=== PATIENT | female | born 1975 | race Caucasian/White ===

== ENCOUNTER 2020-11-24 10:29 | Emergency (ER) | payer BC, SELFPAY ==
[2020-11-24 10:44] VITALS: BP 139/91; PULSE 68; RESP 18; TEMP 36.4; O2SAT 100
[2020-11-24 12:11] VITALS: BP 136/95; PULSE 72; RESP 20; O2SAT 97
--- NOTE | 2020-11-24 12:11 | PC.NURSE ---
Pt resting on cart with no complaints or concerns voiced; updated on poc. No active epistaxis noted at this time. at bedside. Cart in its lowest position with call button and personal items within reach. Advised to press call button for assistance.
--- NOTE | 2020-11-24 12:15 | ED.GENADULT ---
HPI - General Adult General Chief complaint: Epistaxis <Jordan Doshi PA-C - Last Filed: 11/24/20 12:19> Stated complaint: epitaxis <Jordan Doshi PA-C - Last Filed: 11/24/20 12:19> Time Seen by Provider: 11/24/20 10:57 <Jordan Doshi PA-C - Last Filed: 11/24/20 12:19> Source: patient <Jordan Doshi PA-C - Last Filed: 11/24/20 12:19> Mode of arrival: ambulatory <Jordan Doshi PA-C - Last Filed: 11/24/20 12:19> Limitations: no limitations <Jordan Doshi PA-C - Last Filed: 11/24/20 12:19> History of Present Illness HPI narrative: Patient is a 45-year-old female who presents to emergency department with intermittent epistaxis from the right nare had some a few days ago that resolved quickly again today she had it lasted longer patient notes that she has had some seasonal allergies has been using Flonase denies any other symptoms or complaints specifically no anticoagulant use. <Jordan Doshi PA-C - Last Filed: 11/24/20 12:19> Related Data Home medications: Home Medications Medication Instructions Recorded Confirmed levothyroxine 11/24/20 losartan 11/24/20 zolpidem 11/24/20 <Jordan Doshi PA-C - Last Filed: 11/24/20 12:19> Allergies/adverse reactions: Allergies Allergy/AdvReac Type Severity Reaction Status Date / Time Penicillins Allergy Severe RASH Verified 11/24/20 10:46 <Jordan Doshi PA-C - Last Filed: 11/24/20 12:19> Review of Systems Review of Systems: All systems reviewed & are unremarkable except as noted in HPI and below <Jordan Doshi PA-C - Last Filed: 11/24/20 12:19> PMFSH Social History Social History: Social History Gender identity (if verbalized by the patient): Female <Jordan Doshi PA-C - Last Filed: 11/24/20 12:19> Exam Narrative: Exam Narrative: GENERAL: Well-appearing, well-nourished, and in no acute distress. HEAD: Normocephalic, atraumatic. EYES: PERRLA and EOMI. ENT: Nares clear, mild rhinorrhea no epistaxis no bleeding lesions nare was probed and septum with Q-tip unable to start bleeding had the patient blow her nose multiple times no bleeding. Afrin was sprayed into both naris NECK: Supple. No adenopathy or masses. No carotid bruits or JVD CHEST: Clear to auscultation. No respiratory distress. No wheezes rales or rhonchi HEART: Regular rate and rhythm. No murmur heard. EXTREMITIES: Normal range of motion. No edema. SKIN: Warm, dry, no rash. NEURO: No focal deficits. Alert and oriented x3. PSYCH: Normal mood and affect. <MIRELLA Laura Last Filed: 11/24/20 12:19> Course Course Emergency Course: Patient in the room no distress patient was advised to go home continue the Afrin if she starts to have bleeding apply pressure avoided placing Rhino Rocket at this time given that there was no bleeding patient will follow with ENT and was given reasons to return and if she returns we will place Rhino Rocket if necessary <MIRELLA Laura Last Filed: 11/24/20 12:19> Vital Signs Vital signs: Vital Signs Temperature 97.5 F L 11/24/20 10:44 Pulse Rate 68 11/24/20 10:44 Respiratory Rate 18 11/24/20 10:44 Blood Pressure 139/91 H 11/24/20 10:44 Pulse Oximetry 100 11/24/20 10:44 Temperature 97.5 F L 11/24/20 10:44 Pulse Rate 72 11/24/20 12:11 Respiratory Rate 20 11/24/20 12:11 Blood Pressure 136/95 H 11/24/20 12:11 Pulse Oximetry 97 11/24/20 12:11 <MIRELLA Laura Filed: 11/24/20 12:19> Vital Signs Temperature 97.5 F L 11/24/20 10:44 Pulse Rate 68 11/24/20 10:44 Respiratory Rate 18 11/24/20 10:44 Blood Pressure 139/91 H 11/24/20 10:44 Pulse Oximetry 100 11/24/20 10:44 Temperature 97.5 F L 11/24/20 10:44 Pulse Rate 72 11/24/20 12:11 Respiratory Rate 20 11/24/20 12:11 Blood Pressure 136/95 H 11/24/20 12:11
== END 2020-11-24 12:36 | disposition home or self-care (01) ==
PROVIDERS: Emergency Provider General Practice; PCP Registered Nurse
DX: R04.0 Epistaxis (principal)
CPT/HCPCS: 99282; A9270

== ENCOUNTER 2021-08-21 15:17 | Outpatient (CLI) | payer OTHER, SELFPAY ==
--- NOTE | ~2021-08-21 | MM_ITS ---
EXAMINATION: MM screening prasanth BI w rosario HISTORY: Screening TECHNIQUE: Craniocaudal and mediolateral oblique 3-D tomosynthesis images were obtained and synthetic 2-D images were generated. CAD analysis was submitted and interpreted. COMPARISON: 10/02/2019 BREAST PARENCHYMAL COMPOSITION: There are scattered areas of fibroglandular density. FINDINGS: There is no evidence of suspicious mass, calcification, or architectural distortion to sugg est malignancy in either breast. There has been no suspicious interval change. IMPRESSION: 1. No mammographic evidence of malignancy. 2. Recommend routine screening mammography in one year. BI-RADS Category 1: Negative Reviewed, dictated and finalized at location A. ING SERVICE ADMINISTRATOR
== END 2021-08-21 15:18 | disposition home or self-care (01) ==
LOC: ANHIMG 15:20
PROVIDERS: PCP Registered Nurse; Visit Provider Registered Nurse
DX: Z12.31 Encounter for screening mammogram for malignant neoplasm of breast (principal)
CPT/HCPCS: 77063; 77067

== ENCOUNTER 2022-11-13 16:39 | Outpatient (CLI) | payer OTHER, SELFPAY ==
--- NOTE | ~2022-11-13 | MM_ITS ---
EXAMINATION: MM screening prasanth BI w rosario HISTORY: Screening mammogram TECHNIQUE: Craniocaudal and mediolateral oblique 3-D tomosynthesis images were obtained and synthetic 2-D images were generated. CAD analysis was submitted and interpreted. COMPARISON: 08/21/2021, 10/02/2019 bilateral screening mammogram examinations BREAST PARENCHYMAL COMPOSITION: There are scattered areas of fibroglandular density. FINDINGS: There is no evidence of suspicious mass, calcification, or architectural distortion to sugg est malignancy in either breast. There has been no suspicious interval change. IMPRESSION: 1. No mammographic evidence of malignancy. 2. Recommend routine screening mammography in one year. BI-RADS Category 1: Negative Reviewed, dictated and finalized at location A. ASE CASE MANAGER RN
== END 2022-11-13 16:40 | disposition home or self-care (01) ==
LOC: ANHIMG 16:47
PROVIDERS: PCP Registered Nurse; Visit Provider Registered Nurse
DX: Z12.31 Encounter for screening mammogram for malignant neoplasm of breast (principal)
CPT/HCPCS: 77063; 77067

== ENCOUNTER 2024-02-03 15:39 | Outpatient (CLI) | payer OTHER, SELFPAY ==
--- NOTE | ~2024-02-03 | MM_ITS ---
EXAMINATION: MM screening prasanth BI w rosario HISTORY: Screening TECHNIQUE: Craniocaudal and mediolateral oblique 3-D tomosynthesis images were obtained and synthetic 2-D images were generated. CAD analysis was submitted and interpreted. COMPARISON: Comparison to multiple prior studies sequentially, with oldest reviewed study dated 10/02. BREAST PARENCHYMAL COMPOSITION: Not dense: There are scattered areas of fibroglandular density. FINDINGS: There are developing asymmetries in the upper outer quadrant of the right breast. The left breast is stable without evidence for malignancy. IMPRESSION: 1. Developing right breast asymmetries. 2. Additional mammographic views and possible breast ultrasound are recommended. BI-RADS Category 0: Incomplete: Needs additional imaging evaluation. Reviewed, dictated and finalized at location A. IMPRESSION: 1. Developing right breast asymmetries. 2. Additional mammographic views and possible breast ultrasound are recommended . BI-RADS Category 0: Incomplete: Needs additional imaging evaluation.
== END 2024-02-03 15:40 ==
PROVIDERS: PCP Family Medicine; Visit Provider Family Medicine
DX: Z12.31 Encounter for screening mammogram for malignant neoplasm of breast (principal); N64.89 Other specified disorders of breast
CPT/HCPCS: 77063; 77067

== ENCOUNTER 2024-02-24 13:22 | Outpatient (CLI) | payer OTHER, SELFPAY ==
--- NOTE | ~2024-02-24 | MMUS_ITS ---
EXAMINATION: MM diagnostic prasanth RT w rosario, US breast RT limited HISTORY: Follow-up right breast asymmetries TECHNIQUE: Additional 3-D tomosynthesis images of the right breast were performed and synthetic 2-D i mages were generated. CAD analysis was submitted and interpreted. High resolution Limited right breas t ultrasound was performed. COMPARISON: Comparison to multiple prior studies sequentially, with oldest reviewed study dated 10/02. BREAST PARENCHYMAL COMPOSITION: Not dense: There are scattered areas of fibroglandular density. FINDINGS: MAMMOGRAPHIC FINDINGS: There are no suspicious masses, calcifications or architectural distortion in the right breast to sug gest malignancy. ULTRASOUND: Complete US of all 4 quadrants of the right breast and retroareolar region was reviewed. Normal heter ogeneous echotexture without focal solid or cystic mass. IMPRESSION: 1. No evidence for malignancy in the right breast. 2. Routine yearly screening mammogram and regular clinical breast examination are recommended. BI-RADS Category 1: Negative Reviewed, dictated and finalized at location B. IMPRESSION: 1. No evidence for malignancy in the right breast. 2. Routine yearly screening mammogram and regular clinical breast examination a re recommended. BI-RADS Category 1: Negative
== END 2024-02-24 13:23 | disposition home or self-care (01) ==
PROVIDERS: PCP Family Medicine; Visit Provider Family Medicine
DX: R92.8 Other abnormal and inconclusive findings on diagnostic imaging of breast (principal)
CPT/HCPCS: 76642; 77061; 77065; G0279

== ENCOUNTER 2024-11-01 09:59 | Outpatient (CLI) | payer OTHER, SELFPAY ==
--- NOTE | ~2024-11-01 | MR_ITS ---
EXAMINATION: MR brain/brain stem wo con DATE: 11/01/2024 10:36 INDICATION: Vestibular migraine. TECHNIQUE: Magnetic resonance imaging (MRI) of the brain and brainstem was performed without intraven ous contrast. COMPARISON: None. FINDINGS: There are scattered areas of nonspecific increased T2-weighted signal intensity in the cere bral white matter, which is within normal limits for the patient's age. There is an old lacunar infar ct in the left thalamus. There is no intracranial hemorrhage, acute infarction, or abnormal intracran ial mass lesion. The ventricles are normal in size. There is mild mucosal thickening in the ethmoid s inuses. The orbits are normal. The mastoid air cells are normal. IMPRESSION: 1. Old lacunar infarct in the left thalamus. Reviewed, dictated and finalized at location A. STRIAL SALES MANAGER
== END 2024-11-01 10:00 | disposition home or self-care (01) ==
LOC: MICIMG 10:01
PROVIDERS: PCP Nurse Practitioner Family; Visit Provider Family Medicine
DX: G43.809 Other migraine, not intractable, without status migrainosus (principal); I63.81 Other cerebral infarction due to occlusion or stenosis of small artery
CPT/HCPCS: 70551

== ENCOUNTER 2025-02-04 14:51 | Outpatient (CLI) | payer OTHER, SELFPAY ==
--- NOTE | ~2025-02-04 | MM_ITS ---
EXAMINATION: MM screening prasanth BI w rosario HISTORY: Screening TECHNIQUE: Craniocaudal and mediolateral oblique 3-D tomosynthesis images were obtained and synthetic 2-D images were generated. CAD analysis was submitted and interpreted. COMPARISON: Comparison to multiple prior studies sequentially, with oldest reviewed study dated 10/02. BREAST PARENCHYMAL COMPOSITION: Not dense: There are scattered areas of fibroglandular density. FINDINGS: There is no evidence of suspicious mass, calcification, or architectural distortion to sugg est malignancy in either breast. There has been no suspicious interval change. IMPRESSION: 1. No mammographic evidence of malignancy. 2. Recommend routine screening mammography in one year. BI-RADS Category 1: Negative Reviewed, dictated and finalized at location B.
== END 2025-02-04 14:52 | disposition home or self-care (01) ==
LOC: MICIMG 14:52
PROVIDERS: PCP Nurse Practitioner Family; Visit Provider Family Medicine
DX: Z12.31 Encounter for screening mammogram for malignant neoplasm of breast (principal)
CPT/HCPCS: 77063; 77067

== ENCOUNTER 2025-06-13 08:30 | Outpatient (CLI) | payer OTHER, SELFPAY ==
--- NOTE | 2025-06-13 | ECG_ITS ---
Test Date: 2025-06-13 09:00:32 Measurements Intervals [place] Rate: 78 P: 44 [place]: 143 QRS: 11 QRSD: 80 T: 16 QT: 373 QTc: 425 Interpretive Statements SINUS RHYTHM No previous ECG available for comparison Electronically Signed On 06-13-2025 10:29:25 CDT by Krista La M.D.
--- OUTSIDE RECORDS SUMMARY | 2025-06-13 08:44 | XMS_ITS | Clinical Summary ---
Author Organization [facility] Address [address] [place] [address] Care Team Providers Care Video Photographer Name Role Phone Gisela Alba Primary Care Provider [phone] Gareth Haley MD Unavailable Unavailable Allergies Active Allergy Reactions Criticality Noted Date Comments Penicillins Unknown 07/27/2015 Medications levothyroxine (SYNTHROID) 137 MCG tabletIndications:A cquired hypothyroidism Take 1 tablet (137 mcg total) by mouth every morning. 90 tablet 3 2 Active zolpidem (AMBIEN) 5 MG tabletIndications:P rimary insomnia Take 1 tablet (5 mg total) by mouth nightly as needed for Sleep. 30 tablet 1 3 Active losartan (COZAAR) 50 MG tabletIndications:E ssential hypertension Take 1 tablet (50 mg total) by mouth daily. 90 tablet 3 3 Active Active Problems Problem Noted Date Diagnosed Date Current smoker on some days 12/26/2021 Essential hypertension 11/30/2020 Cervical disc herniation 10/15/2019 Foraminal stenosis of cervical region 10/15/2019 Radiculopathy, cervical region 10/15/2019 Spinal stenosis of cervical region 10/15/2019 Other cervical disc degenera tion, unspecified cervical region 10/15/2019 Moderate major depression 01/20/2018 Eczema 05/08/2016 Bilateral knee pain 05/08/2016 Neck pain 05/08/2016 Elevated liver enzymes 01/15/2016 Hemorrhoid 07/27/2015 Hypothyroidism 07/27/2015 Insomnia 07/27/2015 Encounter for preventive health examination 05/18 Resolved Problems Problem Noted Date Diagnosed Date Resolved Date Lower extremity pain 05/26/2018 019 Overview (10/23/2018): Transitioned From: Pain of left lower extremity Swelling of lower extremity 05/26/2018 10/23/2018 Depression 01/20/2018 04/13/2019 Encounter for screening mamm ogram for breast cancer 12/19/2016 05/26/2020 Well woman exam with routine gynecological exam 12/19/2016 05/26/2020 Immunization due 12/19/2016 05/26/2020 Immunizations Immunization Administration Dates Next Due COVID-19 Vaccine (Generic) 10/20/2020 [facility] COVID-19 (ORIGINAL FO RMULATION, PURPLE CAP) mRNA, LNP-S, PF, 30 MCG/0.3 ML DOSE 11/10/2020,10/20/2020 Tdap (Historical Only-select from magnify glass) 02/22/2020 Family History Medical History Relation Comments Obesity Maternal Aunt Breast Cancer Maternal Grandmother Lung Cancer Maternal Grandmother alzheimers Maternal Grandmother leukemia Maternal Grandmother Heart Disease Maternal Uncle skin cancer Mother Relation Status Comments Maternal Aunt Maternal Grandmother Maternal Uncle Mother Social History Tobacco Use Types Packs/Day Years Used Date Smoking Tobacco: Never Smokeless Tobacco: Never Tobacco Cessation:Counseling Given: Not Answered Alcohol Use Standard Drinks/Week Comments Yes 0 (1 standard drink = 0.6 oz pur e alcohol) PHQ-2 Answer Date Recorded Patient Health Questionnaire-2 Score 2 01/01/2023 Comments No Sex and Gender Information Value Date Recorded Sex Assigned at Not on file Legal Sex Female 4:39 PM CDT Gender Identity Not on file Sexual Orientation Not on file Last Filed Vital Signs Vital Sign Reading Time Taken Comments Blood Pressure 100/80 01/01/2023 8:57 AM CDT Pulse 82 01/01/2023 8:57 AM CDT Temperature 36.7 C (98 F) 01/01/2023 8:57 AM CDT Respiratory Rate 18 01/01/2023 8:57 AM CDT Oxygen Saturation 97% 01/01/2023 8:57 AM CDT Inhaled Oxygen Concentration - - Weight 79.6 kg (175 lb 6.4 oz) 01/01/2023 8:57 A M CDT Height 157.5 cm (5' 2) 01/01/2023 8:57 AM CDT Body Mass Index 32.08 01/01/2023 8:57 AM CDT Plan of Treatment Health Maintenance Due Date Last Done Comments Colorectal Cancer Screening Colonoscopy (10 Years) 1974 Hepatitis B Vaccines (1 of 3 - 19+ 3-dose series) 1993 Annual Physical 01/02/2024 01/01/2023, 12/14, 02/22/2020 Pneumococcal Vaccine: 50+ Years (1 of 1 - PCV) 2024 Zoster Vaccines (1 of 2) 2024 Mammogram Screening 11/13/2024 11/13/2022, 08/21/2021, 10/07/2019 COVID-19 Vaccine (2024- season) 2025 09/03/2021, 11/10/2020, 10/20/2020, Additional history exists DTaP, Tdap and Td Vaccines (2 - Td or Tdap) 02/21/2030 02/22/2020 Hepatitis C Completed 04/21/2019 Meningococcal B Vaccine Aged Out No l onger eligible based on patient's age to complete this topic Meningococcal Vaccine Aged Out No misael magalis eligible based on patient's age to complete this topic RSV Immunizations Under 20 Months Aged Out No longer eligible based on patient's age to complete this topic Procedures Procedure Name Priority Date/Time Associated Diagnosis Comments MAMMOGRAM GENERIC (SCAN ORDER) 11/13/2022 HEPATITIS C ANTIBODY Routine 04/21/2019 12:25 PM CDT Elevated liver enzymes from Last 3 Months or Most Recently Relevant to Health Maintenance Results * MAMMOGRAM GENERIC (11/13/2022) Anatomical Region Laterality Modality Other 11/13/2022 [facility] Scanned SCANNING Final Resu lt * HEPATITIS C ANTIBODY (04/21/2019 12:25 PM CDT) HEPATITIS C AB NON-REACT ELDA NON-REACT ELDA [facility] SIGNAL TO CUTOFF 0.01 <1.00 [facility] Comment: HCV antibody was non-reactive. There is no laboratory evidence of HCV infection. In most cases, no further action is required. However, if recent HCV exposure is suspected, a test for HCV RNA (test code 20129) is suggested. For additional information please refer to http://education.Vol[employer]erSpot/faq/LQD73c0 (This link is being provided for informational/ educational purposes only.) 04/21/2019 12:2 5 PM CDT 04/21/2019 12:25 PM CDT Narrative [facility] - 04/22/2019 10:06 AM CDT AN UPDATE OR CORRECTION HAS BEEN MADE TO SEX Resulting Agency Comment Performing Organization Information: Site ID: [place] Name: [place] Address: [address] [id number] Director: Farzad Barbosa D.O., MPH [facility] Final Resul t [facility] from Last 3 Months or Most Recently Relevant to Health Maintenance Insurance [id number] Care Teams Video Photographer Relationship Specialty Start Date End Date Gisela Alba APNP [address] [place] [id number] PCP - General NURSE PRACTITIONER 10/23/18 Gareth Haley MD [address] [place] [id number] 10/23/18
--- OUTSIDE RECORDS SUMMARY | 2025-06-13 08:44 | XMS_ITS | Patient Health Record ---
Author Organization [facility] Address [address] [place] [address] Reason For Referral No Information Plan Of Treatment No Information
--- OUTSIDE RECORDS SUMMARY | 2025-06-13 08:44 | XMS_ITS | Clinical Summary ---
Author Organization [facility] Address [address] [address] Phone Care Team Providers Care [employer] Supervisor Name Role Phone Elvira Mata NP Primary Care Provider [phone] Garth Sanchez MD Unavailable [phone] Alpesh Rosado MD Unavailable Allergies Active Allergy Reactions Criticality Noted Date Comments Penicillins Hives Medium 07/27/2015 Medications meloxicam (MOBIC) 7.5 mg tablet Take 1 tablet (7.5 mg total) by mouth daily as needed for pain 30 tablet 1 07/14/20 24 Active Additional Information Patient not taking.Reported on 05/06/2025 fish oil-dha-epa 1,200-144-216 mg capsule Take by mouth Activ e nutritional supplements liquid Take by mouth Active losartan (COZAAR) 50 mg tablet TAKE 1 TABLET BY MOUTH DAILY 90 tablet 3 08/16/20 24 Active budesonide (PULMICORT) 1 mg/2 mL nebulizer solution EMPTY ONE VIAL INTO IDS, ADD SALINE PACKET AND DISTILLED WATER, THEN IRRIGATE ONCE DAILY 08/27/20 24 Active ubrogepant (Ubrelvy) 100 mg tabletIndicatio ns:Vestibular migraine Take 1 tablet (100 mg total) by mouth once as needed for migraine May repeat dose once in 2 hours if no relief. Do not exceed 2 doses in 24 hours. 4 tablet 09/03/20 24 025 Active Additional Information Patient not taking.Reported on 05/06/2025 meclizine (ANTIVERT) 12.5 mg tabletIndicatio ns:Vestibular migraine Take 1 tablet (12.5 mg total) by mouth 3 (three) times a day as needed for dizziness 90 tablet 4 09/03/20 24 Active Additional Information Patient not taking.Reported on 05/06/2025 semaglutide 0.25 mg/0.05 mL syringe Inject under the skin Active NOT IN DATABASE, PRESCRIPTION, Drug name: Collagan Peptide Active herbal drugs tablet Take by mouth FIBER SUPP Active levothyroxine (SYNTHROID) 125 mcg tablet Take 1 tablet (125 mcg total) by mouth foam rubber fabricator before breakfast 90 tablet 1 01/18/20 25 Active Vitamin D2 1,250 mcg (50,000 unit) capsule TAKE 1 CAPSULE BY MOUTH ONCE WEEKLY 13 capsule 3 03/25/20 25 Active Additional Information Patient not taking.Reported on 05/06/2025 loratadine (CLARITIN) 10 mg tablet Take 1 tablet (10 mg total) by mouth daily Active ondansetron (ZOFRAN) 4 mg tablet TAKE 1 TABLET(4 MG) BY MOUTH EVERY 8 HOURS NEEDED FOR NAUSEA OR VOMITING 20 tablet 1 04/16/20 25 Active prednisoLONE acetate (PRED FORTE) 1 % ophthalmic suspension SHAKE LIQUID AND INSTILL 1 DROP IN BOTH EYES TWICE DAILY FOR 10 DAYS 04/22/20 25 Active neomycin-polymy nirmal B-dexAMETHasone (MAXITROL) 3.5 mg/g-10,000 unit/g-0.1 % ointment APPLY TO UPPER AND LOWER LID MARGINS EVERY NIGHT AT BEDTIME X 1 WEEK 04/23/20 25 Active alcaftadine 0.25 % drops Administer into affected eye(s) daily Active tacrolimus (PROTOPIC) 0.1 % ointment Apply topically 2 (two) times a day 30 g 1 05/04/20 25 Active montelukast (SINGULAIR) 10 mg tablet Take 1 tablet (10 mg total) by mouth nightly 30 tablet 5 05/04/20 25 026 Active hydrOXYzine (VISTARIL) 25 mg capsuleIndicati ons:Irritant contact dermatitis due to cosmetics Take 1 capsule (25 mg total) by mouth 3 (three) times a day as needed for itching 30 capsule 05/06/20 25 Active zolpidem (AMBIEN) 5 mg tablet TAKE 1 TABLET(5 MG) BY MOUTH EVERY NIGHT NEEDED FOR SLEEP 30 tablet 1 05/23/20 25 Active zolpidem (AMBIEN) 5 mg tablet TAKE 1 TABLET(5 MG) BY MOUTH EVERY NIGHT NEEDED FOR SLEEP 30 tablet 2 02/25/20 25 025 Discontinued Active Problems Problem Noted Date Diagnosed Date Atopic keratoconjunctivitis 05/04/2025 Assessment & Plan (05/04/2025 3:18 PM CDT): Will trial singulair orally for allergic component and hx of allergies. Add protopic sparingly to eyelids to help with dermatitis and discomfort. Follow up with eye doctor Friday. Allergic contact dermatitis due to cosmetics Assessment & Plan (04/07/2025 12:45 PM CDT): Varicose veins of leg with pain, left 02/27/2024 Assessment & Plan (08/06/2024 10:14 AM FREIGHT HANDLER): Status post left GSV ablation and stab phlebectomies. Doing great since surgery. Can follow up with me as needed. 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 Risks benefits alternatives to left GSV radiofrequency ablation and stab phlebectomies discussed, risks including bleeding, infection, DVT/PE, thermal injury, need further surgery. She wished proceed. Assessment & Plan (02/27/2024 10:09 AM CDT): Symptomatic varicose veins to the left lower extremity starting a cluster of bulky varicosities to the medial thigh and extends down the medial calf. Plan: Continue compression therapy follow up in the next few weeks with a venous reflux Encounter for screening colonoscopy 06/04/2023 Current smoker on some days 12/26/2021 Essential hypertension 11/30/2020 Assessment & Plan (01/12/2025 2:06 PM CDT): BP normal in office today, continuing Losartan. Updated labs ordered. Assessment & Plan (08/06/2024 10:14 AM FREIGHT HANDLER): Stable continue losartan Assessment & Plan (07/14/2024 3:34 PM CDT): Stable in office. Continue losartan 50 mg. Assessment & Plan (03/31/2024 1:24 PM CDT): Stable continue losartan 50 mg. Assessment & Plan (01/13/2024 12:20 PM CDT): BP stable, continuing Losartan 50 mg daily. Renal function in good shape from labs x 1 month ago. Cervical disc herniation 10/15/2019 Other cervical disc degenera tion, unspecified cervical region 10/15/2019 Radiculopathy, cervical region 10/15/2019 Spinal stenosis, cervical region 10/15/2019 Moderate major depression 01/20/2018 Assessment & Plan (07/14/2024 3:37 PM CDT): Stable. Managed by psychiatry and counselor. Assessment & Plan (01/13/2024 12:19 PM CDT): Has tried Fluoxetine and either Cymbalta or Celexa, had SI on these and felt out of control. Discussed trying to get anxiety/depression under control before addressing the potential ADHD component as this is undiagnosed. Patient ok with seeing Psychiatry and will go through her counselor's recommendations. Bilateral knee pain 05/08/2016 Eczema 05/08/2016 Neck pain 05/08/2016 Elevated liver enzymes 01/15/2016 Hemorrhoid 07/27/2015 Hypothyroidism 07/27/2015 Assessment & Plan (07/14/2024 3:35 PM CDT): Euthyroid. Continue Synthroid 137 mcg. Assessment & Plan (01/13/2024 12:20 PM CDT): Euthyroid x 1 month ago. Continuing Synthroid 137 mcg Insomnia 07/27/2015 Assessment & Plan (07/14/2024 3:36 PM CDT): Has seen sleep improvement on Ambien. Continue current regimen. Assessment & Plan (01/13/2024 12:20 PM CDT): Anxiety/depression likely contributing. Will continue Ambien prn for now but if any adjustments need made will likely have her see sleep medicine. Encounters Date Type Department Care Team Description 06/09/2025 Telephone [facility] Primary Care at [address] [phone] Elvira Mata NP Medical Records Request 05/06/2025 11:00 AM CDT Office Visit [facility] Care at [address] [phone] Amanda Martinez NP Irritant contact dermatitis due to cosmetics (Primary Dx) 05/04/2025 2:30 PM CDT Office Visit [facility] Care at [address] [phone] Aspen Gorman NP Atopic keratoconjunctivitis (Primary Dx) 05/03/2025 Nurse Triage [facility] Care at [address] [phone] Elvira Mata NP 04/07/2025 11:00 AM CDT Office Visit [facility] Care at [address] [phone] Aspen Gorman NP Allergic contact dermatitis due to cosmetics (Primary Dx) from Last 3 Months Immunizations Immunization Administration Dates Next Due Influenza, Unspecified 09/03/2024(Deferr ed: Patient Refused),09/15/2023(Deferred: Patient Refused),08/29/2023(Deferred: Patient Refused),04/15/2023(Deferred: Patient Refused),09/15/2022(Deferred: Patient Refused),06/15/2022(Deferred: Patient Refused) Pfizer SARS-CoV-2 Monovalent Vaccination (12+ Yrs) PURPLE 10/20/2020 Tdap 02/22/2020 Surgical History Surgery Date Site/Laterality Comments HYSTERECTOMY RECTAL PROLAPSE REPAIR COLONOSCOPY 08/06/2023 COLON SURGERY Medical History Medical History Date Comments Hypothyroidism Fatty liver Foraminal stenosis due to intervertebral disc di sease Hypertension Degenerative disc disease, cervical c5-c6 Anxiety Depression Arthritis Family History Medical History Relation Name Comments Alcohol abuse Father Depression Father Hypertension Father Kidney failure Father Coronary artery disease Maternal Grandfather Arthritis Mother Bone cancer Mother Cancer Mother Hypertension Mother metastatic lung cancer Mother Coronary artery disease Other Mate rnal uncle Relation Name Status Comments Father Maternal Grandfather Mother Other Alive Social History Tobacco Use Types Packs/Day Years Used Date Smoking Tobacco: Former Cigarettes Smokeless Tobacco: Never Tobacco Cessation:Counseling Given: Not Answered AUDIT-C Answer Date Recorded Q1: How often do you have a drink containing alc ohol? 2-3 times a week 08/29/2023 Q2: How many drinks containi ng alcohol do you have on a typical day when you are drinking? 1 or 2 08/29/2023 Q3: How often do you have si x or more drinks on one occasion? Never 08/29/2023 PHQ-2 Answer Date Recorded PHQ-2 Total Score (If total score is 3 or more points, staff should administer the PHQ-9) 2 05/04/2025 Personal Safety Answer Date Recorded Have you ever been in or are you currently in a harmful physical or emotional relationship or is someone making you feel afraid or unsafe? Denies 08/06/2023 Comments No Sex and Gender Information Value Date Recorded Sex Assigned at Not on file Legal Sex Female 9:31 AM CDT Gender Identity Not on file Sexual Orientation Not on file Obstetrics History Last Filed Vital Signs Vital Sign Reading Time Taken Comments Blood Pressure 106/78 05/06/2025 10:53 AM CDT Pulse 98 05/06/2025 10:53 AM CDT Temperature 36.6 C (97.8 F) 05/06/2025 10:53 AM CDT Respiratory Rate 16 05/06/2025 10:53 AM CDT Oxygen Saturation 98% 05/06/2025 10:53 AM CDT Inhaled Oxygen Concentration - - Weight 69.4 kg (153 lb) 05/06/2025 10:53 AM CDT Height 157.5 cm (5' 2) 05/06/2025 10:53 AM CDT Body Mass Index 27.98 05/06/2025 10:53 AM CDT Plan of Treatment Health Maintenance Due Date Last Done Comments Hepatitis B Screening 1993 Zoster Vaccine (1 of 2) 2024 Covid-19 Vaccine (4 - season) 2025 09/03/2021, 11/10/2020, 10/20/2020 Influenza Vaccine (#1) 2025 Regular Well Visit/Exam 18-64 01/12/2026 01/12/2025 Breast Cancer Screening-Mammogram 02/09/2026 02/09/2025, 02/24/2024 Depression Screening 05/04/2026 05/04/2025, 01/12/2025, 07/14/2024, Additional history exists Colon Cancer Screening-Colonoscopy 08/06/2028 08/06/2023, 08/06/2023 DTaP/Tdap/Td Vaccine (2 - Td or Tdap) 02/21/2030 02/22/2020 Hepatitis C Screening Completed 01/15/2025 Pneumococcal vaccine <65 Aged Out No longer eligible based on patient's age to complete this topic Procedures Procedure Name Priority Date/Time Associated Diagnosis Comments MAMMOGRAPHY Schedule Routine, Read Routine (OP Routine) 02/09/2025 8:51 AM CDT HEPATITIS C ANTIBODY Routine 01/15/2025 9:10 AM CDT Encounter for hepatitis C screening test for low risk patient COLONOSCOPY 08/06/2023 9:03 AM FREIGHT HANDLER from Last 3 Months or Most Recently Relevant to Health Maintenance Results * MAMMOGRAPHY (02/09/2025 8:51 AM CDT) Anatomical Region Laterality Modality Breast Mammography Murray Styles MD IMG MAMMO PROCEDURES Final Result * Hepatitis C antibody Blood (01/15/2025 9:10 AM CDT) Hep C Ab NON-REACTI VE NON-REACT [facility] Comment: HCV antibody was non-reactive. There is no laboratory evidence of HCV infection. In most cases, no further action is required. However, if recent HCV exposure is suspected, a test for HCV RNA (test code 30052) is suggested. For additional information please refer to http://education.KIYATEC/faq/YKQ13p6 (This link is being provided for informational/ educational purposes only.) Blood 01/15/2025 9:10 AM CDT 01/16/2025 4:28 AM CDT us Elvira Mata [facility] MICROBIOLOGY - GENERAL ORDER IVETTE Final Result [facility] [address] [place] [address] * COLONOSCOPY (08/06/2023 9:03 AM FREIGHT HANDLER) Anatomical Region Laterality Modality Other Narrative Procedure Note Sulema Stanford MD - 08/06/2023 9:03 AM CST [facility] Patient Name: Rebecca Morales Procedure Date: 08/06/2023 9:03 AM Date of : 1975 Admit Type: Outpatient Age: 47 Gender: Female Attending MD: Sulema Stanford M.D. Room: [facility] END[facility]COPY ROOM 2 Note Status: Finalized Patient Profile: This is a 47 year old female hx of tobacco use,HTN, hypothyroidism, depression here for colon cancer screening. No prior colonoscopy and no family hx of colon cancer Procedure: Colonoscopy Indications: Screening for colorectal malignant neoplasm, Thisis the patient's first colonoscopy Referring MD: Garth Villafana M.D. Providers: Sulema Stanford M.D. Impression: - One 4 mm polyp in the cecum, removed with a cold snare. Resected and retrieved. - One 6 mm polyp in the ascending colon, removedwith a cold snare. Resected and retrieved. - Diverticulosis in the sigmoid colon. - External and internal hemorrhoids. Recommendation: - Patient has a contact number available for emergencies. The signs and symptoms of potential delayed complications were discussed with thepatient. Return to normal activities tomorrow. Written discharge instructions were provided to thepatient. - Discharge patient to home (with escort). - Resume previous diet. - Continue present medications. - Await pathology results. - Repeat colonoscopy in 5 years for surveillancebased on pathology results. Medicines: Monitored Anesthesia Care Complications: No immediate complications. Estimated Blood Loss: Estimated blood loss was minimal. Procedure: Pre-Anesthesia Assessment: - Prior to the procedure, a History and Physicalwas performed, and patient medications and allergieswere reviewed. The patient is competent. The risks and benefits of the procedure and the sedation optionsand risks were discussed with the patient. Allquestions were answered and informed consent was obtained. Patient identification and proposed procedure were verified by the physician, the quill machine operator and the hotel maintenance technician in the endoscopy suite. Mental Status Examination: normal. Prophylactic Antibiotics: The patient does not require prophylactic antibiotics. Prior Anticoagulants: The patient has taken no anticoagulant or antiplatelet agents. Afterreviewing the risks and benefits, the patient was deemed in satisfactory condition to undergo the procedure.The anesthesia plan was to use monitored anesthesiacare (MAC). Immediately prior to administration of medications, the patient was re-assessed foradequacy to receive sedatives. The heart rate, respiratory rate, oxygen saturations, blood pressure, adequacyof pulmonary ventilation, and response to care were monitored throughout the procedure. The physical status of the patient was re-assessed after the procedure. The benefits, risks and alternatives of theprocedure and sedation were discussed and informed consentwas obtained. All questions were answered. Please referto the signed informed consent document in the medical record. The bowel preparation used was Miralax via split dose instruction. The bowel preparation usedwas bisacodyl tablets via split dose instruction. The scope was passed under direct vision. The Pediatric Colonoscope PCF-H190L [id number] was introducedthrough the anus and advanced to the the cecum, identifiedby appendiceal orifice and ileocecal valve. The colonoscopy was performed without difficulty. The patient tolerated the procedure well. The qualityof the bowel preparation was adequate. Bowel prep was administered using a split dose. Findings: A 4 mm polyp was found in the cecum. The polyp was flat. The polypwas removed with a cold snare. Resection and retrieval were complete. A 6 mm polyp was found in the ascending colon. The polyp was flat.The polyp was removed with a cold snare. Resection and retrieval were complete. A few small-mouthed diverticula were found in the sigmoid colon. External and internal hemorrhoids were found during retroflexion and during endoscopy. Sulema Stanford M.D. 08/06/2023 11:58:26 AM Number of Addenda: 0 Note Initiated On: 08/06/2023 9:03 AM Procedure Code(s): --- Professional --- 95683, Colonoscopy, flexible; with removal of tumor(s), polyp(s), or other lesion(s) by snare technique --- Technical --- 02499, Colonoscopy, flexible; with removal of tumor(s), polyp(s), or other lesion(s) by snare technique Diagnosis Code(s): --- Professional --- Z12.11, Encounter for screening for malignant neoplasm of colon D12.0, Benign neoplasm of cecum D12.2, Benign neoplasm of ascending colon K64.8, Other hemorrhoids K57.30, Diverticulosis of large intestine without perforation orabscess without bleeding --- Technical --- Z12.11, Encounter for screening for malignant neoplasm of colon D12.0, Benign neoplasm of cecum D12.2, Benign neoplasm of ascending colon K64.8, Other hemorrhoids K57.30, Diverticulosis of large intestine without perforation orabscess without bleeding CPT copyright 2020 [employer]. All rights reserved. The codes documented in this report are preliminary and upon senior administrator support reviewmay be revised to meet current compliance requirements. Recognized by the [employer] for promoting quality in endoscopy Sulema Stanford MD ENDOSCOPY PROCEDURES Final Resul t from Last 3 Months or Most Recently Relevant to Health Maintenance Insurance [facility] CHOICE PLUS [facility] HMO/PPO Address: [facility] [id number] [address] Advance Directives For more information, please contact: [phone] * Full Code (Latest Code Status on File) Date Activated Date Inactivated Comments 08/06/2023 8:25 AM 08/06/2023 4:29 PM Care Teams [employer] Cleaning [employer] Storage Supervisor Relationship Specialty Start Date End Date Elvira Mata NP [address] [facility] [address] [place] [address] PCP - General Family Medicine 01/13/24 Garth Sanchez MD [address] [place] [phone] Otolaryngology 09/03/24 Alpesh Rosado MD [address] [place] [id number] Consulting Physician Vascular Surgery 09/03/24
--- OUTSIDE RECORDS SUMMARY | 2025-06-13 08:44 | XMS_ITS | Encounter Summary ---
Author Organization [facility] Address [address] [place] [address] Care Team Providers Care Director Of Special Events Name Role Phone Elvira Mata NP Primary Care Provider [phone] Garth Sanchez MD Unavailable [phone] Alpesh Rosado MD Unavailable Reason for Visit * Reason Onset Date Comments Medical Records Request 06/09/2025 Encounter Details Date Type Department Care Team (Late st Contact Info) Description 06/09/2025 Telephone [facility] Primary Care at [address] [address] Elvira Mata NP [address] [place] [id number] Medical Records Request Social History Tobacco Use Types Packs/Day Years Used Date Smoking Tobacco: Former Cigarettes Smokeless Tobacco: Never AUDIT-C Answer Date Recorded Q1: How often [...] on file Sexual Orientation Not on file documented as of this encounter Miscellaneous Notes * Telephone Encounter - Angle Levine MA - 06/09/2025 3:37 PM CDT sent * Telephone Encounter - Carolyn Orona - 06/09/2025 2:11 PM CDT Medical Records Request Request Type: Records Request Practice Will Complete What records are being requested: Comprehensive Metabolic Panel from Jan 15 2025 Who will the records be sent to (if being sent to another doctor, list the doctor's name and specialty)? [facility] Date Needed: [facility] Delivery Method: Fax Fax number to use for return of records: [phone] Attn: Kusum Additional Comments/Concerns: No Does the message need to be routed? Yes-Action Needed documented in this encounter Plan of Treatment Not on file documented as of this encounter Visit Diagnoses Not on filedocumented in this encounter Care Teams Director Of Special Events Relationship Specialty Start Date End Date Elvira Mata NP [address] [facility] [address] [place] [address] PCP - General Family Medicine 01/13/24 Garth Sanchez MD [address] [place] [phone] Otolaryngology 09/03/24 Alpesh Rosado MD [address] [place] [phone] Consulting Physician Vascular Surgery 09/03/24 documented as of this encounter
== END 2025-06-13 08:31 | disposition home or self-care (01) ==
LOC: ANHCARD 08:34
PROVIDERS: PCP Nurse Practitioner Family; Visit Provider Nurse Anesthetist, Certified Registered
DX: Z01.810 Encounter for preprocedural cardiovascular examination (principal); I10 Essential (primary) hypertension
CPT/HCPCS: 93005

== ENCOUNTER 2025-06-22 13:07 | Outpatient (CLI) | payer OTHER, SELFPAY ==
--- NOTE | ~2025-06-22 | CT_ITS ---
EXAMINATION: CT sinus wo con COMPARISON: None HISTORY: Chronic sinusitis, unspecified TECHNIQUE: Axial images were obtained without IV contrast. Sagittal, coronal reconstruction images were obtained from the axial views. CT scan performed using dose optimization techniques including the following automated exposure control; adjustment of mA and/or kV; use of iterative reconstruction technique. Automatic exposure control was used to reduce radiation dose. Permanent radiation dose record is archived to PACS. FINDINGS: Nasal bones intact. Anterior maxillary sinus brantley, zygomatic arches and temporomandibular joints intact. Visualized brain parenchyma optic globes and soft tissues appear unremarkable. Frontal sinus is unremarkable. Minimal mucosal thickening in the ethmoidal air cells. Maxillary sinus is unremarkable. The ostiomeatal complexes are patent. Nasal septum deviated to the left. Mild thickening of the turbinates with michael bullosa right middle turbinate. Mild narrowing of the nasal cavities bilaterally. Sphenoid sinus is unremarkable. No osseous destruction or wall thickening is identified. IMPRESSION: Minimal sinusitis Reviewed, dictated and finalized at location P. IMPRESSION: Minimal sinusitis
== END 2025-06-22 13:08 | disposition home or self-care (01) ==
LOC: MICIMG 13:08
PROVIDERS: PCP Nurse Practitioner Family; Visit Provider Otolaryngology
DX: J32.9 Chronic sinusitis, unspecified (principal)
CPT/HCPCS: 70486